=== PATIENT | female | born 1985 | race African-American/Black ===

== ENCOUNTER 2018-03-22 12:52 | Day surgery (SDC) | payer BC ==
[~2018-03-22] VITALS: Ht 160 cm; Wt 61.3 kg
[2018-03-22] MEDS ORDERED: PREPARATION H GENERI RC (13:12)
[2018-03-22] MEDS ORDERED: CARDIZEM120 MG PO (13:13)
[2018-03-22] MEDS ORDERED: DEPO-PROVE150 MG/1 M IM (13:13)
[2018-03-22 13:14] VITALS: BP 157/105; PULSE 90; TEMP 99.3
[2018-03-22 14:50] VITALS: BP 152/108; PULSE 96; TEMP 98.5
[2018-03-22 15:05] VITALS: BP 140/97; PULSE 85
[2018-03-22 15:20] VITALS: BP 138/105; PULSE 81
[2018-03-22 15:35] VITALS: BP 140/101; PULSE 75
== END 2018-03-22 15:50 | disposition home or self-care (01) ==
LOC: SDCO 12:52
DX: K52.9 Noninfective gastroenteritis and colitis, unspecified (principal); R19.5 Other fecal abnormalities; K64.4 Residual hemorrhoidal skin tags; K60.1 Chronic anal fissure; F17.210 Nicotine dependence, cigarettes, uncomplicated
CPT/HCPCS: J2250; J3010; J7030

== ENCOUNTER → 2018-03-26 | Outpatient (CLI) | payer BC ==
[~2018-03-26] MED LIST: CARDIZEM120 MG PO; DEPO-PROVE150 MG/1 M IM; PREPARATION H GENERI RC
== END ==
LOC: COL.LAB 10:48
DX: R19.7 Diarrhea, unspecified (principal); Z72.0 Tobacco use

== ENCOUNTER 2018-04-02 12:25 | Emergency (ER) | payer BC ==
[~2018-04-02] VITALS: Ht 160 cm; Wt 60.7 kg
[2018-04-02 12:31] VITALS: TEMP 99.4
[2018-04-02] MEDS ORDERED: PREDNISONE20 MG PO (13:43)
[2018-04-02] MEDS ORDERED: FLAGYL500 MG PO (13:43)
[2018-04-02] MEDS ORDERED: NORCO 325 MG-51 TAB PO (13:43)
[2018-04-02 14:00] VITALS: BP 150/98; PULSE 90
== END 2018-04-02 14:00 | disposition home or self-care (01) ==
LOC: COL.ER 12:25
DX: K51.90 Ulcerative colitis, unspecified, without complications (principal); I10 Essential (primary) hypertension

== ENCOUNTER 2018-07-16 15:42 | Emergency (ER) | payer BC ==
[~2018-07-16] VITALS: Ht 160 cm; Wt 65.9 kg
[~2018-07-16 15:42] MED LIST changes: +FLAGYL500 MG PO; +NORCO 325 MG-51 TAB PO; +PREDNISONE20 MG PO
[2018-07-16 15:52] VITALS: BP 128/88
[2018-07-16 16:54] LABS: COLLECTION METHOD CLEAN CATCH
[2018-07-16 17:01] LABS: BASO # 0.1 (0.0-0.2); BASO % 0.9 % (0.0-2.0); EOS # 0.3 (0.0-0.7); EOS % 2.6 % (0-4.0); GRAN # 6.7 (1.4-6.5); GRAN % 66.1 % (42.2-75.2); LYMPH # 1.2 (1.2-3.4); LYMPH % 11.9 % (20.0-51.0); MEAN CELL VOLUME 64 fl (80.0-100.0); MEAN CORPUSCULAR HGB CONC 30 g/dl (33.0-37.0); MEAN PLATELET VOLUME 10.3 fl (7.4-10.4); MONO # 1.8 (0.1-0.6); MONO % 17.6 % (1.7-9.3); PLATELET COUNT 370 K/mm3 (130-400); REDCELL DISTRIBUTION WIDTH-CV 20.8 % (11.5-14.5)
[2018-07-16 17:04] LABS: HEMATOCRIT 30.1 % (37.0-47.0); MEAN CORPUSCULAR HEMOGLOBIN 19 pg (27.0-31.0)
[2018-07-16 17:10] LABS: GRANULAR CAST >12 /lpf; HYALINE CAST >12 /lpf; MUCOUS Present /lpf; PH 5 (5-8); SQUAMOUS EPITHELIAL 0-2 /hpf; URINE APPEARANCE Clear; URINE BACTERIA Rare /hpf; URINE BILIRUBIN Positive (NEGATIVE); URINE BLOOD Negative (NEGATIVE); URINE COLOR Amber; URINE GLUCOSE Negative (NEGATIVE); URINE KETONE Trace (NEGATIVE); URINE LEUKOCYTE ESTERASE Negative (NEGATIVE); URINE NITRATE Negative (NEGATIVE); URINE PROTEIN(semi-quant) 3+ (NEGATIVE)
[2018-07-16 17:13] LABS: BILIRUBIN,TOTAL 0.6 mg/dL (0.0-1.0); CALCIUM 9.1 mg/dL (8.4-10.2); CREATININE, serum 0.81 mg/dL (0.52-1.25); POTASSIUM 3.4 mmol/L (3.4-5.0)
[2018-07-16 17:25] LABS: C-REACTIVE PROTEIN 19.2 mg/dL (0.0-0.9)
[2018-07-16 17:40] VITALS: TEMP 100.6
[2018-07-16] MEDS ORDERED: PREDNISONE20 MG PO (17:48)
[2018-07-16] MEDS ORDERED: NORCO 325 MG-51 TAB PO (17:55)
[2018-07-16] MEDS ORDERED: CIPRO 500MG TA500 MG PO (20:19)
[2018-07-16] MEDS ORDERED: FLAGYL500 MG PO (20:19)
[2018-07-16 21:40] VITALS: PULSE 92
== END 2018-07-16 21:40 | disposition home or self-care (01) ==
LOC: COL.ER 15:42
PROVIDERS: Nurse Practitioner
DX: K51.90 Ulcerative colitis, unspecified, without complications (principal); F17.210 Nicotine dependence, cigarettes, uncomplicated
CPT/HCPCS: J2270; J2405; J7030; J7512; Q9967